=== PATIENT | female | born 1965 | race Caucasian/White ===

== ENCOUNTER → 2016-07-29 | Outpatient (CLI) | payer BC ==
[~2016-07-29] MED LIST: ALPR0.25 PO; CYAN10004 PO; LEVO125C2 PO; PANT40TA PO; TORS20TA2 PO
[2016-07-29 17:11] LABS: BASO % 0.6 %; BASO ABS # 0.05 K/uL (0-0.2); COMPLETE YES; EOS % 1.6 %; HEMATOCRIT 40.8 % (37-47); IG% 0.1 %; LYMPH % 15.1 %; LYMPH ABS # 1.29 K/uL (1.2-3.4); MEAN CELL VOLUME 86.4 fL (80-100); MEAN CORPUSCULAR HEMOGLOBIN 29.2 pg (25-34); MEAN CORPUSCULAR HGB CONC 33.8 g/dl (32-36); MEAN PLATELET VOLUME 12.1 fL (7.4-10.4); MONO % 7.2 %; NEUT % 75.4 %; PLATELET COUNT 301 K/uL (130-400); RED BLOOD COUNT 4.72 M/uL (4.2-5.4); WHITE BLOOD COUNT 8.53 K/uL (4.8-10.8)
[2016-07-29 17:29] LABS: ALT/SGPT 44 U/L (12-78); BLOOD UREA NITROGEN 15 mg/dl (7-18); BUN/CREATININE RATIO 16.6 (10-20); CALCIUM 9.2 mg/dl (8.5-10.1); CARBON DIOXIDE 20 mmol/L (21-32); CHLORIDE 108 mmol/L (98-107); CREATININE 0.91 mg/dl (0.60-1.20); GLUCOSE 84 mg/dl (70-99); POTASSIUM 4.1 mmol/L (3.5-5.1); SODIUM 140 mmol/L (136-145)
[2016-07-29 17:38] LABS: ALKALINE PHOSPHATASE 95 U/L (45-117); AST/SGOT 25 U/L (15-37); FERRITIN 15.7 ng/ml (8.0-388.0); THYROID STIMULATING HORMONE 0.555 uIu/ml (0.300-4.500); TOTAL IRON BINDING CAPACITY 322 mcg/dl (250-450)
== END | disposition home or self-care (01) ==
LOC: C.LABBC 12:57
PROVIDERS: ATTEND Internal Medicine
DX: Z87.19 Personal history of other diseases of the digestive system (principal)

== ENCOUNTER → 2016-10-15 | Outpatient (CLI) | payer BC ==
[2016-10-15 17:45] LABS: THYROID STIMULATING HORMONE 0.204 uIu/ml (0.300-4.500)
--- NOTE | 2016-10-21 13:37 | CODING QUERY MEDICAL NECESSITY ---
SUPPORTING DIAGNOSIS NEEDED A supporting diagnosis is required for the test/procedure performed on this patient in order for us to be reimbursed by the patient's insurance. Please provide a supporting diagnosis for the following test/procedure listed below next to the test name along with your signature. *If there is no additional diagnosis for this patient that would support the following test/procedure please document that below next to the test/procedure. Test(s)/Procedure(s) that require a supporting diagnosis: * VITAMIN D 25-HYDROXY DIAGNOSIS: * DOS: 10/15/16 Provider Signature: Date: Thank you Maribel [facility] Information Management Once completed, please kindly fax back to [phone] For questions please call [phone]
== END | disposition home or self-care (01) ==
LOC: C.LABBC 15:13
PROVIDERS: ATTEND Internal Medicine Endocrinology, Diabetes & Metabolism
DX: Z00.00 Encounter for general adult medical examination without abnormal findings (principal); E89.0 Postprocedural hypothyroidism; R53.83 Other fatigue

== ENCOUNTER → 2016-12-22 | Outpatient (CLI) | payer BC | END | disposition home or self-care (01) | LOC: C.PAPS 08:53 | PROVIDERS: ATTEND Obstetrics & Gynecology | DX: Z01.419 Encounter for gynecological examination (general) (routine) without abnormal findings (principal) ==

== ENCOUNTER → 2017-01-07 | Outpatient (CLI) | payer BC ==
--- NOTE | 2017-01-07 13:38 | MAMMOGRAPHY REPORT ---
BILATERAL DIGITAL SCREENING MAMMOGRAM TOMOSYNTHESIS WITH CAD: 01/07/2017 CLINICAL HISTORY: Routine screening. Patient has no complaints. TECHNIQUE: Breast tomosynthesis in addition to standard 2D mammography was performed. Current study was also evaluated with a Computer Aided Detection (CAD) system. COMPARISON: Comparison is made to exams dated: 01/06/2016 mammogram, 01/02/2015 mammogram, 01/01/2014 m ammogram, 12/29/2012 mammogram, 12/28/2011 mammogram, and 12/20/2009 mammogram - [facility] nter. BREAST COMPOSITION: There are scattered areas of fibroglandular density in both breasts. FINDINGS: No suspicious masses, calcifications, or areas of architectural distortion are noted in ei ther breast. There has been no significant interval change compared to prior exams. IMPRESSION: ACR BI-RADS CATEGORY 1: NEGATIVE There is no mammographic evidence of malignancy. A 1 year screening mammogram is recommended. The pa tient will receive written notification of the results. Approximately 10% of breast cancers are not detected with mammography. A negative mammographic report should not delay biopsy if a clinically suggestive mass is present. Liana Richardson M.D. /:01/07/2017 09:15:21 Senior Report Developer: Marybeth Grande, [facility] letter sent: Normal 1/2 BI-RADS Code: ACR BI-RADS Category 1: Negative
== END | disposition home or self-care (01) ==
LOC: C.MAMM 08:26
PROVIDERS: ATTEND Obstetrics & Gynecology
DX: Z12.31 Encounter for screening mammogram for malignant neoplasm of breast (principal)

== ENCOUNTER → 2017-02-16 | Outpatient (CLI) | payer BC ==
[2017-02-16 12:57] LABS: THYROID STIMULATING HORMONE 0.747 uIu/ml (0.300-4.500)
== END | disposition home or self-care (01) ==
LOC: C.LAB1850 11:14
PROVIDERS: ATTEND Internal Medicine Endocrinology, Diabetes & Metabolism
DX: C73 Malignant neoplasm of thyroid gland (principal)

== ENCOUNTER → 2017-03-08 | Outpatient (CLI) | payer BC ==
--- NOTE | 2017-03-08 11:44 | DIAGNOSTIC IMAGING REPORT ---
CAROTID DOPPLER NECK ART CLINICAL HISTORY: 51 years-old Female presenting with PULSATILE TINNITUS. TECHNIQUE: Real-time grayscale and color and spectral Doppler ultrasound imaging of the bilateral carotid arteries was performed. NASCET criteria was used in evaluating this study. COMPARISON: None. FINDINGS: Right: Common carotid: Patent. Peak systolic velocity 74 cm/s. Internal carotid artery: Patent. Peak systolic velocity 74 cm/s. External carotid artery: Patent. Peak systolic velocity 100 cm/s. Systolic ratio: 1.0. Left: Common carotid: Patent. Peak systolic velocity 71 cm/s. Internal carotid artery: Patent. Peak systolic velocity 77 cm/s. External carotid artery: Patent. Peak systolic velocity 90 cm/s. Systolic ratio: 1.1. Bilateral antegrade flow within the vertebral arteries. Reference ranges: Normal ICA peak systolic velocity less than 125 cm/s. Normal ICA peak systolic velocity to common carotid artery velocity ratio is less than 2: less than 2 equates to less than 50% stenosis, 2-4 equates to 50-69% stenosis, greater than 4 equates to greater than or equal to 70% stenosis. Normal ICA end-diastolic velocity less than 40. Blood pressure Brachial: Right: 138/88 mmHg, Left: 138/88 mmHg. IMPRESSION: No hemodynamically significant stenosis seen within the carotid arteries. Electronically signed by: Stiven Pelletier M.D. 03/08/2017 11:43 AM Dictated Date/Time: 03/08/2017 11:42 AM
== END | disposition home or self-care (01) ==
LOC: C.ULTRBC 10:50
PROVIDERS: ATTEND Physician Assistant Medical
DX: H93.A9 Pulsatile tinnitus, unspecified ear (principal)

== ENCOUNTER → 2017-12-01 | Outpatient (CLI) | payer OTHER ==
[2017-12-01 13:22] LABS: BASO % 0.6 %; BASO ABS # 0.04 K/uL (0-0.2); EOS % 2.8 %; EOS ABS # 0.18 K/uL (0-0.5); HEMATOCRIT 39.7 % (37-47); HEMOGLOBIN 13.5 g/dL (12.0-16.0); IG# 0.01 K/uL (0.00-0.02); LYMPH % 26.2 %; MEAN CELL VOLUME 85.2 fL (80-100); MEAN PLATELET VOLUME 11.6 fL (7.4-10.4); MONO % 7.7 %; NEUT % 62.5 %; NEUT ABS # 4.07 K/uL (1.4-6.5); PLATELET COUNT 256 K/uL (130-400); RED CELL DISTRIBUTION WIDTH CV 14.4 % (11.5-14.5); RED CELL DISTRIBUTION WIDTH SD 45.2 fL (36.4-46.3)
[2017-12-01 13:57] LABS: ALBUMIN 3.5 gm/dl (3.4-5.0); ALT/SGPT 31 U/L (12-78); AST/SGOT 22 U/L (15-37); BLOOD UREA NITROGEN 16 mg/dl (7-18); CALCIUM 8.1 mg/dl (8.5-10.1); CARBON DIOXIDE 25 mmol/L (21-32); CREATININE 0.91 mg/dl (0.60-1.20); GLUCOSE 84 mg/dl (70-99); POTASSIUM 3.7 mmol/L (3.5-5.1); SODIUM 138 mmol/L (136-145)
[2017-12-01 14:00] LABS: ALKALINE PHOSPHATASE 87 U/L (45-117); TOTAL PROTEIN 7.2 gm/dl (6.4-8.2); TRANSFERRIN 251 mg/dl (200-360)
== END | disposition home or self-care (01) ==
LOC: C.LABBC 11:06
PROVIDERS: ATTEND Internal Medicine
DX: Z00.00 Encounter for general adult medical examination without abnormal findings (principal); C73 Malignant neoplasm of thyroid gland; E89.0 Postprocedural hypothyroidism; R53.83 Other fatigue; E53.8 Deficiency of other specified B group vitamins

== ENCOUNTER 2021-03-07 15:18 | Inpatient (IN) ==
--- NOTE | 2021-03-07 15:59 | XRay Report ---
SINGLE VIEW CHEST CLINICAL HISTORY: Dyspnea. FINDINGS: An AP, portable, upright chest radiograph is compared to chest x-ray and chest CT dated 12/17. The cardiomediastinal silhouette is unremarkable. There is airspace consolidation at both chuck g bases, left greater than right. Question trace left pleural effusion. No pneumothorax is seen. The skeletal structures are osteopenic. The bony thorax is grossly intact. IMPRESSION: 1. There is bibasilar airspace consolidation, left greater than right. Correlate clinically from the pneumonia/aspiration pneumonitis. Radiographic follow-up to resolution is recommended. 2. Question trace left pleural effusion. ACT 112: Negative or not required by law. Electronically signed by: Jaya Mendez M.D. 03/07/2021 3:58 PM
--- NOTE | 2021-03-07 16:39 | Emergency Department Note ---
History of Present Illness General Chief complaint: Shortness of Breath/Dyspnea Stated complaint: SOB +COVID Time Seen by Provider: 03/07/21 15:59 Source: patient Mode of arrival: ambulatory Limitations: no limitations History of Present Illness Maximum Pain Intensity: 4 This patient is a 55-year-old female who presents to the emergency department for evaluation of shortness of breath. Patient had a positive COVID-19 test 9 days ago. Her symptoms started 10 days ago. She initially had a headache, body aches, chills and cough. Her fevers and body aches have been improving. She is beginning to get her sense of smell back. She has still been having a dry, hacking cough and states that it is painful to take a deep breath in. She states that she was in the shower today and it became difficult for her to breathe. She called 911 and was brought here. She is feeling somewhat better at this time. She did not receive a COVID-19 vaccination. Patient reports a history of thyroid cancer status post thyroidectomy and also reports a history of "autoimmune issues." Home Medications Medication Instructions Recorded Confirmed Type cyanocobalamin (vitamin B-12) 2,000 mcg PO QPM cap 05/17/19 03/07/21 History 1,000 mcg capsule docusate sodium 100 mg capsule 200 mg PO QPM PRN 06/07/19 03/07/21 History (Colace) polyethylene glycol 3350 17 17 g PO DAILY PRN 11/11/20 03/07/21 History gram/dose oral powder (Miralax) lactobacillus combo no.11 15 1 cap PO DAILY 12/25/20 03/07/21 History billion cell sprinkle capsule (Probiotic) escitalopram oxalate 10 mg tablet 10 mg PO HS 01/13/21 03/07/21 History levothyroxine 112 mcg tablet 112 mcg PO QAM #30 tab 02/24/21 03/07/21 Rx Delsym Cough Plus Day-Night 2 tabs PO UD PRN 03/07/21 03/07/21 History escitalopram oxalate 5 mg tablet 5 mg PO HS 03/07/21 03/07/21 History fluticasone propionate 50 2 spray INTRANASAL DAILY PRN 03/07/21 03/07/21 History mcg/actuation nasal spray,suspension guaifenesin 600 mg tablet, 600 mg PO Q12H PRN 03/07/21 03/07/21 History extended release 12 hr (Mucinex) pantoprazole 40 mg tablet,delayed 40 mg PO DAILY 03/07/21 03/07/21 History release Allergies Allergy/AdvReac Type Severity Reaction Status Date / Time fluorescein Allergy Intermediate made eyes Verified 03/07/21 15:44 really blood shot with drops clarithromycin [From Biaxin] Allergy Mild Rash Verified 03/07/21 15:44 levofloxacin Allergy Mild headache Verified 03/07/21 15:44 paroxetine [From Paxil] Allergy Mild "felt Verified 03/07/21 15:44 weird" Sulfa (Sulfonamide Allergy Mild RASH Verified 03/07/21 15:44 Antibiotics) sulfamethoxazole Allergy Mild Rash Verified 03/07/21 15:44 trimethoprim [From Bactrim] Allergy Mild Rash Verified 03/07/21 15:44 doxycycline AdvReac Mild N/V Verified 03/07/21 15:44 Past Med/Surg History Medical History Anxiety Depression with anxiety GERD (gastroesophageal reflux disease) History of thyroid cancer Hx of migraines Hx of radioactive iodine thyroid ablation Hypothyroidism Osteoarthritis TMJ (dislocation of temporomandibular joint) patient is not sure if she has this jaw has never locked Surgical History History of colonoscopy History of endometrial ablation History of esophagogastroduodenoscopy (EGD) History of thyroidectomy Nausea and vomiting after administration of anesthetic agent Family History Father Diabetes Heart disease Mother Hypertension Idiopathic neuropathy Sister FHx: migraine headaches Hypertension Migraine headache Sleep apnea Unknown Atrial fibrillation Hyperlipemia Hypothyroidism Brother Myocardial infarction Uncle Family history of esophageal cancer Family/Other Family hx of colon cancer 2nd cousin Other No family history of adverse response to anesthesia Social History Smoking Status: Never smoker Second Hand Exposure: Yes ( A CHILD); Hx Alcohol Use: Yes Alcohol type: wine Hx Substance Use: No Preferred Language: Kyrgyz Communication Ability: Effective Visual Impairment: No Limitations Hearing Ability: Normal [employer]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 Beliefs That Will Affect Care: None marital status: Current Living Situation: Spouse Current Living Situation Comment: lives with and 1 son current occupational status: retired Feels Safe at Home: Yes Childhood Exposure to Second-Hand Smoke: Yes Dental Care, Regularly: Yes Physical Activity Frequency: 3-4 Times per Week Seatbelt Use: always Sunscreen Use: Yes Assistive Devices: Glasses Review of Systems A total of 10 systems reviewed and were otherwise negative Physical Exam Vital Signs Vital Signs - 24 hr 03/07/21 15:18 03/07/21 15:22 03/07/21 15:30 Temperature 36.7 C Temperature Source Oral Pulse Rate 72 78 Pulse Rate [Exercises] Pulse Rate from SpO2 Sensor 72 Pulse Rhythm Respiratory Rate 25 H 22 Respiratory Rate [Exercises] Respiratory Effort / Characteristics Labored Respiratory Pattern Regular Blood Pressure 116/84 116/84 Blood Pressure Mean 94 94 Blood Pressure Position Sitting Pulse Oximetry 96 90 97 Pulse Oximetry [Exercises] Oxygen Delivery Method Nasal Cannula Room Air Nasal Cannula Oxygen Flow Rate 2 2 Sepsis Recent Fever Within 48 Hours No Sepsis New/Unexplained Change in Mental Status No Sepsis Action Taken by Nursing No Action Required 03/07/21 16:30 03/07/21 16:50 03/07/21 17:12 Temperature Temperature Source Pulse Rate 73 96 H Pulse Rate [Exercises] 115 H Pulse Rate from SpO2 Sensor 73 Pulse Rhythm Regular Respiratory Rate 18 20 Respiratory Rate [Exercises] 26 H Respiratory Effort / Characteristics Respiratory Pattern Blood Pressure 122/71 Blood Pressure Mean 88 Blood Pressure Position Pulse Oximetry 93 96 Pulse Oximetry [Exercises] 84 L Oxygen Delivery Method Room Air Room Air Oxygen Flow Rate Sepsis Recent Fever Within 48 Hours Sepsis New/Unexplained Change in Mental Status Sepsis Action Taken by Nursing 03/07/21 17:20 03/07/21 17:30 03/07/21 18:00 Temperature Temperature Source Pulse Rate 79 74 71 Pulse Rate [Exercises] Pulse Rate from SpO2 Sensor 78 74 70 Pulse Rhythm Respiratory Rate 20 20 20 Respiratory Rate [Exercises] Respiratory Effort / Characteristics Respiratory Pattern Blood Pressure 114/76 117/78 107/74 Blood Pressure Mean 88 91 85 Blood Pressure Position Pulse Oximetry 94 93 90 Pulse Oximetry [Exercises] Oxygen Delivery Method Nasal Cannula Oxygen Flow Rate 2 Sepsis Recent Fever Within 48 Hours Sepsis New/Unexplained Change in Mental Status Sepsis Action Taken by Nursing 03/07/21 20:10 Temperature Temperature Source Pulse Rate Pulse Rate [Exercises] Pulse Rate from SpO2 Sensor 66 Pulse Rhythm Respiratory Rate Respiratory Rate [Exercises] Respiratory Effort / Characteristics Respiratory Pattern Blood Pressure 98/63 L Blood Pressure Mean 74 Blood Pressure Position Pulse Oximetry 92 Pulse Oximetry [Exercises] Oxygen Delivery Method Oxygen Flow Rate Sepsis Recent Fever Within 48 Hours Sepsis New/Unexplained Change in Mental Status Sepsis Action Taken by Nursing VITALS: Vitals are noted on the nurse's note and reviewed by myself. GENERAL: This is a 55-year-old female in no acute distress. SKIN: The skin was without rashes. EARS: External auditory canals clear, tympanic membranes pearly urias without erythema or effusion bilaterally. EYES: Pupils equal round and reactive to light and accommodation. MOUTH: Mucous membranes moist. Tonsils are not enlarged. Pharynx without erythema or exudate. NECK: Supple without nuchal rigidity. No lymphadenopathy. HEART: Regular rate and rhythm without murmurs gallops or rubs. LUNGS: Clear to auscultation bilaterally without wheezes, rales or rhonchi. No retractions or accessory muscle use. NEURO: Patient was alert and oriented to person place and time. Course Administered Medications Discontinued Medications Dexamethasone Sodium Phosphate (DexamethasonePf 10 Mg/Ml Vial) 6 mg IV NOW ONE Stop: 03/07/21 17:15 Last Admin: 03/07/21 17:52 Dose: 6 mg Documented by: [id number] Ioversol (Optiray 320 125ml) 119 ml IV ONCE ONE Stop: 03/07/21 18:14 Last Admin: 03/07/21 18:13 Dose: 1 ml Documented by: [id number] Medical Decision Making Differential Diagnosis Reactive airway disease, pneumonia, pneumothorax, COPD, CHF, infections, cardiac ischemia, pulmonary embolism, musculoskeletal, gastrointestinal, as well as other pathologies. Home Medications Current Medication List: was personally reviewed by me Laboratory Data Attestation: I reviewed the patient's lab results. Result diagrams: 03/07/21 16:01 03/07/21 16:01 Lab Results 03/07/21 03/07/21 03/07/21 Range/Units 16:01 16:01 16:01 WBC 5.79 (4.8-10.8) K/uL RBC 4.49 (4.2-5.4) M/uL Hgb 13.3 (12.0-16.0) g/dL Hct 39.4 (37-47) % MCV 87.8 (80-100) fL MCH 29.6 (25-34) pg MCHC 33.8 (32-36) g/dL RDW Std Deviation 44.2 (36.4-46.3) fL RDW Coeff of Evelin 13.7 (11.5-14.5) % Plt Count 181 (130-400) K/uL MPV 11.6 H (7.4-10.4) fL Immature Gran % (Auto) 0.0 % Neut % (Auto) 81.3 % Lymph % (Auto) 12.3 % Calvert % (Auto) 6.2 % Eos % (Auto) 0.0 % Baso % (Auto) 0.2 % Neut # (Auto) 4.71 (1.4-6.5) K/uL Lymph # (Auto) 0.71 L (1.2-3.4) K/uL Calvert # (Auto) 0.36 (0.11-0.59) K/uL Eos # (Auto) 0.00 (0-0.5) K/uL Baso # (Auto) 0.01 (0-0.2) K/uL Immature Gran # (Auto) 0.00 (0.00-0.02) K/uL D-Dimer 2120 H* (0-500) ug/L FEU Sodium 137 (136-145) mmol/L Potassium 3.5 (3.5-5.1) mmol/L Chloride 107 (98-107) mmol/L Carbon Dioxide 22 (21-32) mmol/L Anion Gap 8.0 (3-11) BUN 9 (7-18) mg/dl Creatinine 0.85 (0.6-1.2) mg/dl Est Cr Clr Drug Dosing 85.3 ml/min Est GFR ( Amer) 90.0 ml/min Est GFR (Non-Af Amer) 77.7 ml/min BUN/Creatinine Ratio 10.1 (10-20) Glucose 90 (70-99) mg/dl Calcium 8.6 (8.5-10.1) mg/dl Total Bilirubin 0.6 (0.2-1) mg/dl AST 32 (15-37) U/L ALT 41 (12-78) U/L Alkaline Phosphatase 99 (45-117) U/L Troponin I < 0.015 (0-0.045) ng/ml Total Protein 7.4 (6.4-8.2) gm/dl Albumin 3.4 (3.4-5.0) gm/dl Globulin 4.0 (2.5-4.0) gm/dl Albumin/Globulin Ratio 0.9 (0.9-2) Urine Color Urine Appearance (Clear) Urine pH (4.5-7.5) Ur Specific York (1.000-1.030) Urine Protein (Negative) Urine Glucose (UA) (Negative) Urine Ketones (Negative) Urine Blood (Negative) Urine Nitrite (Negative) Urine Bilirubin (Negative) Urine Urobilinogen (Negative) Ur Leukocyte Esterase (Negative) 03/07/21 Range/Units 17:03 WBC (4.8-10.8) K/uL RBC (4.2-5.4) M/uL Hgb (12.0-16.0) g/dL Hct (37-47) % MCV (80-100) fL MCH (25-34) pg MCHC (32-36) g/dL RDW Std Deviation (36.4-46.3) fL RDW Coeff of Evelin (11.5-14.5) % Plt Count (130-400) K/uL MPV (7.4-10.4) fL Immature Gran % (Auto) % Neut % (Auto) % Lymph % (Auto) % Calvert % (Auto) % Eos % (Auto) % Baso % (Auto) % Neut # (Auto) (1.4-6.5) K/uL Lymph # (Auto) (1.2-3.4) K/uL Calvert # (Auto) (0.11-0.59) K/uL Eos # (Auto) (0-0.5) K/uL Baso # (Auto) (0-0.2) K/uL Immature Gran # (Auto) (0.00-0.02) K/uL D-Dimer (0-500) ug/L FEU Sodium (136-145) mmol/L Potassium (3.5-5.1) mmol/L Chloride (98-107) mmol/L Carbon Dioxide (21-32) mmol/L Anion Gap (3-11) BUN (7-18) mg/dl Creatinine (0.6-1.2) mg/dl Est Cr Clr Drug Dosing ml/min Est GFR ( Amer) ml/min Est GFR (Non-Af Amer) ml/min BUN/Creatinine Ratio (10-20) Glucose (70-99) mg/dl Calcium (8.5-10.1) mg/dl Total Bilirubin (0.2-1) mg/dl AST (15-37) U/L ALT (12-78) U/L Alkaline Phosphatase (45-117) U/L Troponin I (0-0.045) ng/ml Total Protein (6.4-8.2) gm/dl Albumin (3.4-5.0) gm/dl Globulin (2.5-4.0) gm/dl Albumin/Globulin Ratio (0.9-2) Urine Color Yellow Urine Appearance Clear (Clear) Urine pH 7.5 (4.5-7.5) Ur Specific York 1.014 (1.000-1.030) Urine Protein Negative (Negative) Urine Glucose (UA) Negative (Negative) Urine Ketones 1+ H (Negative) Urine Blood Negative (Negative) Urine Nitrite Negative (Negative) Urine Bilirubin Negative (Negative) Urine Urobilinogen Negative (Negative) Ur Leukocyte Esterase Negative (Negative) Imaging Data Attestation: I personally reviewed and interpreted this imaging study as follows: Radiologist's Impression: Chest X-Ray 03/07/21 15:26 SINGLE VIEW CHEST CLINICAL HISTORY: Dyspnea. FINDINGS: An AP, portable, upright chest radiograph is compared to chest x-ray and chest CT dated 12/29/2020. The cardiomediastinal silhouette is unremarkable. There is airspace consolidation at both lung bases, left greater than right. Question trace left pleural effusion. No pneumothorax is seen. The skeletal structures are osteopenic. The bony thorax is grossly intact. IMPRESSION: 1. There is bibasilar airspace consolidation, left greater than right. Correlate clinically from the pneumonia/aspiration pneumonitis. Radiographic follow-up to resolution is recommended. 2. Question trace left pleural effusion. ACT 112: Negative or not required by law. Electronically signed by: Jaya Mendez M.D. 03/07/2021 3:58 PM Chest CTA 03/07/21 17:32 CT ANGIOGRAM OF THE CHEST CLINICAL HISTORY: Atypical chest pain. Dyspnea. Covid. COMPARISON STUDY: Chest CT dated 12/29/2020. Chest x-ray dated 03/07/2021. TECHNIQUE: Following the IV administration of 119 cc of Optiray 320, CT angiogram of the chest was performed from the upper abdomen to the thoracic inlet utilizing the pulmonary embolus protocol. Images are reviewed in the axial, sagittal, and coronal planes. 3-D MIPS images are created and assessed. IV contrast was administered without complication. A dose lowering technique was utilized adhering to the principles of ALARA. CT DOSE: 529.21 mGycm FINDINGS: Thyroid: Atrophic. Thoracic aorta: The thoracic aorta is normal in caliber and demonstrates standard 3-vessel arch anatomy. No dissection is seen. Pulmonary vasculature: The pulmonary trunk is normal in caliber. There are no filling defects identified in main, lobar, or segmental pulmonary branches to suggest pulmonary embolus. Heart: The heart is top normal in size and without pericardial effusion. Lungs and pleural spaces: There is multifocal groundglass consolidation seen throughout both lungs with a subpleural and lower lobe predominance. No pleural effusion is identified. The trachea and central airways are clear. Mediastinum: There is no mediastinal lymphadenopathy. Dianne: Clear. Axillae: There is no axillary lymphadenopathy. Upper abdomen: Partially visualized upper abdominal viscera is within normal limits. Skeletal structures: The skeletal structures are osteopenic. No lytic or blastic bony lesions are seen. IMPRESSION: 1. There is no evidence of pulmonary embolus in the main, lobar, or segmental pulmonary arteries. 2. Multifocal airspace consolidation is consistent with the reported history of viral pneumonia. Radiographic follow-up to resolution is recommended. 3. Additional findings as above. ACT 112: Negative or not required by law. Electronically signed by: Jaya Mendez M.D. 03/07/2021 6:44 PM ECG Data Attestation: I personally reviewed and interpreted this ECG as follows: Rate (beats per minute): 70 Rhythm: + normal sinus ECG ST segments: + Nonspecific ST abnormalities Comparison ECG Date: no prior available MDM Narrative Continuous laboratory monitor: Order was placed for continuous laboratory monitor. Patient was placed on the laboratory monitor. Patient was noted to be in normal sinus rhythm at an initial rate of 72 bpm. The patient is a 55-year-old female who presents today complaining of worsening shortness of breath. Patient is positive for COVID-19. She had started to feel better but states that her symptoms have worsened over the past day. She became very short of breath while in the shower just prior to arrival. Her labs are unremarkable, with no leukocytosis, anemia or concerning electrolyte abnormalities. Kidney function is within normal limits. D-dimer was found to be elevated. CT of the chest was performed and shows no evidence of PE. Jeana ient was found to have a multifocal pneumonia consistent with COVID-19. Patient was not hypoxic at rest, however did drop down to 84% during an ambulatory trial. Patient was placed on 2 L of oxygen via nasal cannula. She was given 6 mg of Decadron IV. The case was discussed with the [facility] hospitalist service, who agreed to evaluate the patient for further care. Impression & Plan COVID-19 virus infection Discharge Plan Visit Data Chief Complaint: Shortness of Breath/Dyspnea Stated Complaint: SOB +COVID ED Provider: Raz Patton ED Midlevel Provider: Adrienne Holloway Discharge Problem: COVID-19 virus infection Forms Stand Alone Forms: [facility] Prescriptions Prescriptions: No Action levothyroxine 112 mcg tablet 112 mcg PO QAM Qty: 30 RF: 1 Probiotic 15 billion cell capsule, sprinkle 1 cap PO DAILY RF: 0 cyanocobalamin (vitamin B-12) 1,000 mcg capsule 2,000 mcg PO QPM RF: 0 docusate sodium [Colace] 100 mg Capsule 200 mg PO QPM PRN (Reason: Constipation) RF: 0 polyethylene glycol 3350 [Miralax] 17 gram/dose powder 17 g PO DAILY PRN (Reason: Constipation) RF: 0 escitalopram oxalate 10 mg tablet 10 mg PO HS RF: 0 guaifenesin [Mucinex] 600 mg Tablet Extended Release 12hr 600 mg PO Q12H PRN (Reason: Congestion) RF: 0 Delsym Cough Plus Day-Night 2 tabs PO UD PRN (Reason: Cough) RF: 0 pantoprazole 40 mg tablet,delayed release (DR/EC) 40 mg PO DAILY RF: 0 fluticasone propionate 50 mcg/actuation spray,suspension 2 spray intranasal DAILY PRN (Reason: Allergy Symptoms) RF: 0 escitalopram oxalate 5 mg tablet 5 mg PO HS RF: 0 Referrals Referrals: Stiven Ruiz MD [Primary Care Provider] -
[2021-03-07 17:08] LABS: Basophils # (auto) 0.01 K/uL (0-0.2); Basophils % (auto) 0.2 %; Hematocrit (blood only) 39.4 % (37-47); Hemoglobin 13.3 g/dL (12.0-16.0); Lymphocytes # (auto) 0.71 K/uL (1.2-3.4); Lymphocytes % (auto) 12.3 %; Mean Corpuscular Hemoglobin 29.6 pg (25-34); Mean Corpuscular Hgb Conc 33.8 g/dL (32-36); Mean Corpuscular Volume 87.8 fL (80-100); Mean Platelet Volume 11.6 fL (7.4-10.4); Monocytes # (auto) 0.36 K/uL (0.11-0.59); Monocytes % (auto) 6.2 %; Neutrophils # (auto) 4.71 K/uL (1.4-6.5); Neutrophils % (auto) 81.3 %; Platelet Count 181 K/uL (130-400); RDW Coefficient of Variation 13.7 % (11.5-14.5); RDW Standard Deviation 44.2 fL (36.4-46.3); Red Blood Count 4.49 M/uL (4.2-5.4); White Blood Count 5.79 K/uL (4.8-10.8)
[2021-03-07] MEDS ORDERED: dexAMETHasone**PF** 10 MG/ML VIAL IV ONE (17:14)
[2021-03-07 17:30] LABS: Alanine Aminotransferase 41 U/L (12-78); Albumin Level 3.4 gm/dl (3.4-5.0); Aspartate Aminotransferase 32 U/L (15-37); BUN Creatinine Ratio 10.1 (10-20); Blood Urea Nitrogen 9 mg/dl (7-18); Calcium 8.6 mg/dl (8.5-10.1); Carbon Dioxide 22 mmol/L (21-32); Chloride 107 mmol/L (98-107); Creatinine Clr Calc Pharmacy 85.3 ml/min; Est GFR (Non-African American) 77.7 ml/min; Glucose 90 mg/dl (70-99); Potassium 3.5 mmol/L (3.5-5.1); Sodium 137 mmol/L (136-145)
[2021-03-07 17:32] LABS: D Dimer 2120 ug/L FEU (0-500)
[2021-03-07 17:35] LABS: Albumin Globulin Ratio 0.9 (0.9-2); Alkaline Phosphatase 99 U/L (45-117); Bilirubin,Total 0.6 mg/dl (0.2-1); Total Protein 7.4 gm/dl (6.4-8.2); Troponin I < 0.015 ng/ml (0-0.045)
[2021-03-07] MEDS ORDERED: OPTIRAY 320 125ml IV ONE (18:13)
[2021-03-07 18:14] LABS: Appearance Urine Clear (Clear); Bilirubin Urine Negative (Negative); Blood Urine Negative (Negative); Color Urine Yellow; Glucose Urine UA Negative (Negative); Ketones Urine 1+ (Negative); Leukocyte Esterase Urine Negative (Negative); Nitrite Urine Negative (Negative); Protein Urine Negative (Negative); Specific Gravity Urine 1.014 (1.000-1.030); Urobilinogen Urine Negative (Negative); pH Urine 7.5 (4.5-7.5)
--- NOTE | 2021-03-07 18:45 | CT Scan Report ---
CT ANGIOGRAM OF THE CHEST CLINICAL HISTORY: Atypical chest pain. Dyspnea. Covid. COMPARISON STUDY: Chest CT dated 12/29/2020. Chest x-ray dated 03/07/2021. TECHNIQUE: Following the IV administration of 119 cc of Optiray 320, CT angiogram of the chest was pe rformed from the upper abdomen to the thoracic inlet utilizing the pulmonary embolus protocol. Images are reviewed in the axial, sagittal, and coronal planes. 3-D MIPS images are created and assessed. I V contrast was administered without complication. A dose lowering technique was utilized adhering to the principles of ALARA. CT DOSE: 529.21 mGycm FINDINGS: Thyroid: Atrophic. Thoracic aorta: The thoracic aorta is normal in caliber and demonstrates standard 3-vessel arch anato my. No dissection is seen. Pulmonary vasculature: The pulmonary trunk is normal in caliber. There are no filling defects identif ied in main, lobar, or segmental pulmonary branches to suggest pulmonary embolus. Heart: The heart is top normal in size and without pericardial effusion. Lungs and pleural spaces: There is multifocal groundglass consolidation seen throughout both lungs wi th a subpleural and lower lobe predominance. No pleural effusion is identified. The trachea and centr al airways are clear. Mediastinum: There is no mediastinal lymphadenopathy. Dianne: Clear. Axillae: There is no axillary lymphadenopathy. Upper abdomen: Partially visualized upper abdominal viscera is within normal limits. Skeletal structures: The skeletal structures are osteopenic. No lytic or blastic bony lesions are see n. IMPRESSION: 1. There is no evidence of pulmonary embolus in the main, lobar, or segmental pulmonary arteries. 2. Multifocal airspace consolidation is consistent with the reported history of viral pneumonia. Radi ographic follow-up to resolution is recommended. 3. Additional findings as above. ACT 112: Negative or not required by law. Electronically signed by: Jaya Mendez M.D. 03/07/2021 6:44 PM
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
[2021-03-07] MEDS ORDERED: NON-FORMULARY MEDICATION (Escitalopram Oxalate 5 mg tablet) PO SCH (23:26)
[2021-03-07] MEDS ORDERED: ALBUT/IPRATROP 3MG/0.5MG NEB 3 ML VIAL NEB PRN (23:26)
[2021-03-07] MEDS ORDERED: NITROGLYCERIN SL 0.4 MG/TAB TAB SL PRN (23:26)
[2021-03-07] MEDS ORDERED: ONDANSETRON INJ 2 MG/ML 2 ML VIAL IV PRN (23:26)
[2021-03-07] MEDS ORDERED: POLYETHYLENE (MIRALAX) 17 GM PACK PO PRN (23:26)
[2021-03-07] MEDS ORDERED: ACETAMINOPHEN 325 MG TAB PO PRN (23:26)
[2021-03-07] MEDS ORDERED: DOCUSATE SODIUM 100 MG CAP PO PRN (23:26)
[2021-03-07] MEDS ORDERED: ALBUTEROL HFA 8 GM INHALER INH PRN (23:35)
[2021-03-07] MEDS ORDERED: ESCITALOPRAM OXALATE 10 MG TAB PO SCH (23:45)
[2021-03-07] MEDS: ALBUTEROL HFA 8 GM INHALER INH SCH (23:46)
[2021-03-08] MEDS ORDERED: cefTRIAXone SODIUM 2,000 MG in DEXTROSE 5% 50 ML IV SCH
[2021-03-08] MEDS: guaiFENesin 600 MG TABCR PO SCH ×3 (00:09→21:34)
[2021-03-08] MEDS: ESCITALOPRAM OXALATE 10 MG TAB PO SCH ×2 (00:09→21:35)
[2021-03-08] MEDS: HYDROcodone/HOMATROPINE SYRUP 5MG/1.5MG 5ML UDP PO PRN ×4 (00:20→21:34)
[2021-03-08] MEDS: ENOXAPARIN INJ 40 MG/0.4 ML SYR SQ SCH ×3 (00:56→21:33)
[2021-03-08] MEDS ORDERED: SODIUM CHLORIDE 0.9% 1000ML 1,000 ML IV SCH (04:30)
[2021-03-08] MEDS: LEVOTHYROXINE SODIUM 112 MCG TABLET PO SCH (06:48)
[2021-03-08] MEDS: ALBUTEROL HFA 8 GM INHALER INH SCH (07:16)
[2021-03-08] MEDS: CHOLECALCIFEROL 1,000 UNITS 25 MCG TAB PO SCH (07:31)
[2021-03-08] MEDS: PANTOprazole 40 MG TAB PO SCH (07:31)
[2021-03-08] MEDS: ZINC SULFATE 220 MG CAPSULE PO SCH (07:32)
[2021-03-08] MEDS: ADVANCED PROBIOTIC 1250 MG CAPSULE PO SCH (07:35)
--- NOTE | 2021-03-08 08:54 | Hospitalist Progress Note ---
Date of Service March 08, 2021 Assessment & Plan (1) Pneumonia due to COVID-19 virus: Plan: Pneumonia due to COVID-19 virus with hypoxia- CTA chest with NO pulmonary emboli, just shows infiltrates consistent with viral pneumonia Dexamethasone 6 mg IV daily, day 2, will change to PO on discharge stop scheduled albuterol, no wheezing, make PRN Guaifenesin extended release 600 mg p.o. twice daily Hycodan syrup PRN for cough, could try Codeine if this doesn't help, she says it makes her drowsy stop Ceftriaxone, no concerns for bacterial infection Vitamin D 5000 international units p.o. daily Zinc sulfate 2020 mg p.o. daily Enoxaparin 40 mg subcu every 12 hours on room air this morning, if she remains on room air for 24 hours then discharge her to home on dexamethasone PO fluids stopped, encourage her to eat/drink, sit OOB in chair, ambulate in room (2) Hypoxia: Plan: resolved quickly, was on 2L, down to room air today (3) Depression with anxiety: Plan: Continue Escitalopram (4) Hypothyroidism, postablative: Plan: Post ablative hypothyroidism/history of thyroid cancer- Continue levothyroxine 112 mcg daily (5) History of thyroid cancer: Plan: See above (6) Vitamin B12 deficiency: Plan: Continue supplement 2000 mcg daily (7) GERD (gastroesophageal reflux disease): Plan: Continue pantoprazole Plan: discharge to home tomorrow morning as long as she remains stable Admission and Anticipated Discharge Date Admission Date: March 07, 2021 Subjective patient very fatigued, but breathing easy, has a non productive cough, irritating more than anything no fever, her sense of smell/taste is back, ate some breakfast this morning had diarrhea at home but no diarrhea now for 24 hours, hopeful it is resolved she says she has been sick for about 9-10 days no room air this morning, 90%, discussed that if she stays on room air until tomorrow morning I will discharge her home she agrees with this plan Review of Systems Review of Systems: All systems reviewed & are unremarkable except as noted in Subjective Constitutional: + fatigue and + weakness; no fever Respiratory: + cough and + dyspnea on exertion; no dyspnea and no sputum production Cardiovascular: no chest pain and no edema Gastrointestinal: no abdominal pain, no nausea, no vomiting, no constipation and no diarrhea/loose stools Physical Exam Constitutional: well developed, well nourished, + ill appearing and comfortable; no acute distress Neck: trachea midline, no thyromegaly Respiratory: normal respiratory effort, lungs clear to auscultation Cardiovascular: RRR, no murmur, no edema Gastrointestinal (Abdomen): normal bowel sounds, soft, nontender, no hepatosplenomegaly Musculoskeletal: no cyanosis or clubbing, extremities motor strength 5/5 Skin: no rashes, warm and dry Psychiatric: Orientation: alert and oriented x 3 Affect: + flat affect Mood: + depressed mood Results & Data Results & Data ([facility]) Vital Signs (Past 12 Hours) Vital Signs Temp Pulse Pulse Resp BP BP BP 03/08/21 08:41 60 03/08/21 07:47 36.8 C 65 18 98/67 L 03/08/21 07:17 67 20 03/08/21 05:17 110/70 03/08/21 04:16 37.0 C 64 18 83/48 L 03/08/21 01:15 70 03/07/21 23:26 03/07/21 22:01 37.1 C 69 22 129/86 03/07/21 21:30 99/72 L 03/07/21 21:00 106/60 Pulse Ox Pulse Ox 03/08/21 08:41 03/08/21 07:47 91 03/08/21 07:17 90 03/08/21 05:17 03/08/21 04:16 90 03/08/21 01:15 03/07/21 23:26 92 03/07/21 22:01 92 03/07/21 21:30 92 03/07/21 21:00 91 Laboratory Results Laboratory Results - last 24 hr 03/07/21 03/07/21 03/07/21 16:01 16:01 16:01 WBC 5.79 RBC 4.49 Hgb 13.3 Hct 39.4 MCV 87.8 MCH 29.6 MCHC 33.8 RDW Std Deviation 44.2 RDW Coeff of Evelin 13.7 Plt Count 181 MPV 11.6 H Immature Gran % (Auto) 0.0 Neut % (Auto) 81.3 Lymph % (Auto) 12.3 [place] % (Auto) 6.2 Eos % (Auto) 0.0 Baso % (Auto) 0.2 Neut # (Auto) 4.71 Lymph # (Auto) 0.71 L [place] # (Auto) 0.36 Eos # (Auto) 0.00 Baso # (Auto) 0.01 Immature Gran # (Auto) 0.00 D-Dimer 2120 H* Sodium 137 Potassium 3.5 Chloride 107 Carbon Dioxide 22 Anion Gap 8.0 BUN 9 Creatinine 0.85 Est Cr Clr Drug Dosing 85.3 Est GFR ( Amer) 90.0 Est GFR (Non-Af Amer) 77.7 BUN/Creatinine Ratio 10.1 Glucose 90 Calcium 8.6 Total Bilirubin 0.6 AST 32 ALT 41 Alkaline Phosphatase 99 Troponin I < 0.015 Total Protein 7.4 Albumin 3.4 Globulin 4.0 Albumin/Globulin Ratio 0.9 Urine Color Urine Appearance Urine pH Ur Specific [place] Urine Protein Urine Glucose (UA) Urine Ketones Urine Blood Urine Nitrite Urine Bilirubin Urine Urobilinogen Ur Leukocyte Esterase 03/07/21 17:03 WBC RBC Hgb Hct MCV MCH MCHC RDW Std Deviation RDW Coeff of Evelin Plt Count MPV Immature Gran % (Auto) Neut % (Auto) Lymph % (Auto) [place] % (Auto) Eos % (Auto) Baso % (Auto) Neut # (Auto) Lymph # (Auto) [place] # (Auto) Eos # (Auto) Baso # (Auto) Immature Gran # (Auto) D-Dimer Sodium Potassium Chloride Carbon Dioxide Anion Gap BUN Creatinine Est Cr Clr Drug Dosing Est GFR ( Amer) Est GFR (Non-Af Amer) BUN/Creatinine Ratio Glucose Calcium Total Bilirubin AST ALT Alkaline Phosphatase Troponin I Total Protein Albumin Globulin Albumin/Globulin Ratio Urine Color Yellow Urine Appearance Clear Urine pH 7.5 Ur Specific [place] 1.014 Urine Protein Negative Urine Glucose (UA) Negative Urine Ketones 1+ H Urine Blood Negative Urine Nitrite Negative Urine Bilirubin Negative Urine Urobilinogen Negative Ur Leukocyte Esterase Negative Medications Administered Current Inpatient Medications Acetaminophen (Acetaminophen 325 Mg Tab) 650 mg PO Q4H PRN PRN Reason: Pain or Fever Stop: 04/06/21 23:25 Albuterol (Albut/Ipratrop 3mg/0.5mg Neb 3 Ml Vial) 3 ml NEB Q2H PRN PRN Reason: dyspnea Stop: 04/06/21 23:25 Albuterol (Albuterol Hfa 8 Gm Inhaler) 2 puffs INH QID JOHAN Stop: 04/06/21 23:44 Last Admin: 03/08/21 07:16 Dose: 2 puffs Documented by: Albuterol (Albuterol Hfa 8 Gm Inhaler) 2 puffs INH Q2R PRN PRN Reason: Shortness Of Breath Stop: 04/06/21 23:34 Cyanocobalamin (Cyanocobalamin 500 Mcg Tablet (Vitamin B-12)) 2,000 mcg PO QPM JOHAN Stop: 04/07/21 20:59 Docusate Sodium (Docusate Sodium 100 Mg Cap) 200 mg PO QPM PRN PRN Reason: Constipation Stop: 04/06/21 23:25 Enoxaparin Sodium (Enoxaparin Inj 40 Mg/0.4 Ml Syr) 40 mg SQ Q12H JOHAN Stop: 04/06/21 21:59 Last Admin: 03/08/21 00:56 Dose: 40 mg Documented by: Escitalopram Oxalate (Escitalopram Oxalate 10 Mg Tab) 15 mg PO HS [facility] Stop: 04/06/21 23:44 Last Admin: 03/08/21 00:09 Dose: Not Given Documented by: Guaifenesin (Guaifenesin 600 Mg Tabcr) 600 mg PO Q12 JOHAN Stop: 04/06/21 23:44 Last Admin: 03/08/21 07:32 Dose: 600 mg Documented by: Hydrocodone Bit/Homatropine Methylb (Hydrocodone/Homatropine Syrup 5mg/1.5mg 5ml Udp) 5 ml PO Q4H PRN PRN Reason: Cough Stop: 03/21/21 23:25 Last Admin: 03/08/21 06:51 Dose: 5 ml Documented by: Dexamethasone 6 mg/ Syringe 1.5 mls @ 1 mls/min IV Q24H [facility] Stop: 04/07/21 16:59 Ceftriaxone Sodium 2,000 mg/ (Dextrose) 70 mls @ 100 mls/hr IV Q24H [facility]; Protocol Stop: 03/15/21 00:00 Last Infusion: 03/08/21 01:41 Dose: Infused Documented by: Lactobacillus Acidoph/Casei/Rhamnos (Advanced Probiotic 1250 Mg Capsule) 2 cap PO DAILY JOHAN Stop: 04/07/21 08:59 Last Admin: 03/08/21 07:35 Dose: 2 cap Documented by: Levothyroxine Sodium (Levothyroxine Sodium 112 Mcg Tablet) 112 mcg PO DAILYBB [facility] Stop: 04/07/21 06:29 Last Admin: 03/08/21 06:48 Dose: 112 mcg Documented by: Nitroglycerin (Nitroglycerin Sl 0.4 Mg/Tab Tab) 0.4 mg SL UD PRN PRN Reason: Chest Pain Stop: 04/06/21 23:25 Ondansetron HCl (Ondansetron Inj 2 Mg/Ml 2 Ml Vial) 4 mg IV Q6H PRN PRN Reason: Nausea Stop: 04/06/21 23:25 Pantoprazole Sodium (Pantoprazole 40 Mg Tab) 40 mg PO DAILY [facility] Stop: 04/07/21 08:59 Last Admin: 03/08/21 07:31 Dose: 40 mg Documented by: Polyethylene Glycol (Polyethylene (Miralax) 17 Gm Pack) 17 gm PO DAILY PRN PRN Reason: Constipation Stop: 04/06/21 23:25 Vitamin D (Cholecalciferol 1,000 Units 25 Mcg Tab) 5,000 units PO QAM [facility] Stop: 04/07/21 08:59 Last Admin: 03/08/21 07:31 Dose: 5,000 units Documented by: Zinc Sulfate (Zinc Sulfate 220 Mg Capsule) 220 mg PO QAM [facility] Stop: 04/07/21 08:59 Last Admin: 03/08/21 07:32 Dose: 220 mg Documented by: PG Care Time/CCT Total # of Minutes Spent Total Time Spent with Patient: Total time spent is greater than 50% in coordination of care (as documented) at patient's floor/unit and/or counseling patient: Coding Level of Care Code 41977 Subseq Hosp Care Lvl 2 Diagnoses Pneumonia due to COVID-19 virus U07.1; J12.82 Hypoxia R09.02 Depression with anxiety F41.8 Hypothyroidism, postablative E89.0 History of thyroid cancer Z85.850 Vitamin B12 deficiency E53.8 GERD (gastroesophageal reflux disease) K21.9
[2021-03-08] MEDS ORDERED: dexAMETHasone 6 MG in SYRINGE 0 ML IV SCH (17:00)
[2021-03-08] MEDS ORDERED: CYANOCOBALAMIN 500 MCG TABLET (VITAMIN B-12) PO SCH (21:00)
[2021-03-09] MEDS: LEVOTHYROXINE SODIUM 112 MCG TABLET PO SCH (06:23)
[2021-03-09] MEDS: HYDROcodone/HOMATROPINE SYRUP 5MG/1.5MG 5ML UDP PO PRN (06:26)
[2021-03-09 07:12] LABS: BUN Creatinine Ratio 8.2 (10-20); C Reactive Protein 2.53 mg/dl (0-0.29); Calcium 8.2 mg/dl (8.5-10.1); Creatinine Clr Calc Pharmacy 93.9 ml/min; Est GFR (Non-African American) 94.9 ml/min; Magnesium 2.2 mg/dl (1.8-2.4); Potassium 3.7 mmol/L (3.5-5.1)
[2021-03-09] MEDS: PANTOprazole 40 MG TAB PO SCH (09:21)
[2021-03-09] MEDS: ADVANCED PROBIOTIC 1250 MG CAPSULE PO SCH (09:21)
[2021-03-09] MEDS: CHOLECALCIFEROL 1,000 UNITS 25 MCG TAB PO SCH (09:21)
[2021-03-09] MEDS: guaiFENesin 600 MG TABCR PO SCH (09:21)
[2021-03-09] MEDS: ZINC SULFATE 220 MG CAPSULE PO SCH (09:21)
[2021-03-09] MEDS: ENOXAPARIN INJ 40 MG/0.4 ML SYR SQ SCH (09:22)
--- NOTE | 2021-03-09 10:17 | Discharge Summary ---
Date of Service March 09, 2021 Admission HPI Per Admitting Provider The patient is a 55-year-old female with a past medical history including pulsatile tinnitus of right ear, thyroid cancer, depression with anxiety, post ablative hypothyroidism, PVCs, vitamin B12 deficiency, mixed migraine and muscle contraction headache, atypical chest pain, GERD and TMJ. She presents to the emergency department today for assessment of an acute worsening today of her 9 days interval shortness of breath that began after exposure to her son 10 days ago, who has been diagnosed with COVID-19. Additional symptoms include loss of taste and smell, both of which have been improving. She was seen in her outpatient PCPs office on 03/04, and did have a positive COVID-19 test. Work-up in the emergency department included recorded pulse ox on room air with short ambulation of 84%. Chest x-ray showed bibasilar infiltrates. CT angiography was consistent with a viral pneumonia. Patient was given Decadron 6 mg IV by the ED. Other significant lab abnormalities: D-dimer 2120. CTA of chest was negative for PE Principal Diagnosis COVID 19 pneumonia Discharge Exam Constitutional well developed, well nourished and comfortable; no acute distress and not ill appearing Neck trachea midline, no thyromegaly Respiratory normal respiratory effort, lungs clear to auscultation Cardiovascular RRR, no murmur, no edema Gastrointestinal (Abdomen) normal bowel sounds, soft, nontender, no hepatosplenomegaly Musculoskeletal no cyanosis or clubbing, extremities motor strength 5/5 Skin no rashes, warm and dry Psychiatric Orientation: alert and oriented x 3 Affect: euthymic affect Discharge Data Allergies Allergy/AdvReac Type Severity Reaction Status Date / Time fluorescein Allergy Intermediate made eyes Verified 03/07/21 15:44 really blood shot with drops clarithromycin [From Biaxin] Allergy Mild Rash Verified 03/07/21 15:44 levofloxacin Allergy Mild headache Verified 03/07/21 15:44 paroxetine [From Paxil] Allergy Mild "felt Verified 03/07/21 15:44 weird" Sulfa (Sulfonamide Allergy Mild RASH Verified 03/07/21 15:44 Antibiotics) sulfamethoxazole Allergy Mild Rash Verified 03/07/21 15:44 trimethoprim [From Bactrim] Allergy Mild Rash Verified 03/07/21 15:44 doxycycline AdvReac Mild N/V Verified 03/07/21 15:44 Consultations 03/07/21 20:04 ED Decision to Admit Stat Ordered Studies 03/07/21 17:32 CT angio chest PE protocol Stat Hospital Course (1) Pneumonia due to COVID-19 virus: Pneumonia due to COVID-19 virus with hypoxia- CTA chest with NO pulmonary emboli, just shows infiltrates consistent with viral pneumonia Dexamethasone 6 mg IV daily, day 3, will change to PO on discharge, complete 7 more days at home stop scheduled albuterol, no wheezing, make PRN Enoxaparin 40 mg subcu every 12 hours on room air for over 24 hours, no distress at all, most pressing issue is cough discharge to home on dexamethasone gave prescription for both Hycodan and Codeine, using Hycodan while here, if she is not getting enough relief she can use Codeine instead, instructed her to not take them together, one or the other Tessalon TID Vitamin D and Zinc for 7 days for immune support stay well nourished, well hydrated stay in isolation 3 more days since symptoms started about 10 days ago monitor pulse oximetry at home, return to the ED if saturations < 88% on room air (2) Hypoxia: resolved quickly, was on 2L, down to room air morning of 03/08, stable on room air for over 24 hours, can go home (3) Depression with anxiety: Continue Escitalopram (4) Hypothyroidism, postablative: Post ablative hypothyroidism/history of thyroid cancer- Continue levothyroxine 112 mcg daily (5) History of thyroid cancer: See above (6) Vitamin B12 deficiency: Continue supplement 2000 mcg daily (7) GERD (gastroesophageal reflux disease): Continue pantoprazole discharge to home Total Time Total Time Spent Total Time Spent (In Minutes): 32 Total Time Includes: Examination of the Patient, Discharge Planning and Medication Reconciliation Discharge Plan Discharge Items Patient Disposition: Home - Self-Care Reason For Visit: COVID-19 PNEUMONIA WITH HYPOXIA Discharge Diagnosis: COVID 19 pneumonia Condition on Discharge: Good Goals: complete course of dexamethasone use Codeine and tessalon for cough stay well nourished, well hydrated, get rest Activity: Per Instructions section Activity Comment: stay in isolation for 3 more days Driving/Machine Use: No limitations Weightbearing: Full weightbearing Non-emergency contact: Primary Care Provider Call non-emergency contact if: you have any medication questions and your symptoms worsen Follow-up/Referrals: Stiven Ruiz MD [Primary Care Provider] - (one week) Diet: Regular Addtl Attending Provider Instructions: Medications: - DEXAMETHASONE: 6mg PO daily for 7 more days, this is to reduce inflammation, treat COVID - HYDROCODONE and CODEINE: both of these are different types of cough syrup, if the hydrocodone is not giving you relief, then try the Codeine do NOT use them together, the Codeine is stronger, that is why I gave you a prescription for both if no relief with the hydrocodone then just stop it and use the Codeine, the Codeine will make you a little more drowsy but that is all - TESSALON: take three times a day for cough suppression, it is safe to use this with either the Codeine or hydrocodone obtain Zinc and Vitamin D over the counter, Zinc will be 50mg, take 4 tablets daily for 7 days, the Vitamin D3, take 5000 units daily for 7 days these are for immune support COVID 19 pneumonia: off oxygen for over 24 hours you will likely continue to feel better, cough is most difficult issue to treat use Tessalon three times a day and either the Codeine or Hydrocodone, Codeine is usually more effective take dexamethasone for 7 more days, you can come out of isolation after 3 more days at home get plenty of rest, stay well nourished and well hydrated if you start to feel more short of breath check your pulse oximeter (you can get one of these from drug store) if your saturations are below 88% on room air then you should return to the emergency room however, at this point would only expect you to slowly get better Pending Studies at Discharge: No Stand-Alone Forms: My [facility], Smoking Cessation Medications and DC Order Prescriptions: New hydrocodone-homatropine [Hydromet] 5-1.5 mg/5 mL Syrup 5 ml PO Q4H PRN (Reason: cough) 7 Days Qty: 473 RF: 0 benzonatate [Tessalon Perles] 100 mg capsule 100 mg PO TID PRN (Reason: cough) Qty: 30 RF: 1 codeine-guaifenesin 10-100 mg/5 mL liquid 10 ml PO Q6H PRN (Reason: cough) Qty: 237 RF: 0 dexamethasone 4 mg tablet 6 mg PO DAILY 7 Days Qty: 11 RF: 0 cholecalciferol (vitamin D3) 25 mcg (1,000 unit) Capsule 5,000 unit PO QAM 7 Days Qty: 30 RF: 0 zinc sulfate [Orazinc] 50 mg zinc (220 mg) Capsule 220 mg PO QAM 7 Days Qty: 31 RF: 0 Continued levothyroxine 112 mcg tablet 112 mcg PO QAM Qty: 30 RF: 1 Probiotic 15 billion cell capsule, sprinkle 1 cap PO DAILY RF: 0 cyanocobalamin (vitamin B-12) 1,000 mcg capsule 2,000 mcg PO QPM RF: 0 docusate sodium [Colace] 100 mg Capsule 200 mg PO QPM PRN (Reason: Constipation) RF: 0 polyethylene glycol 3350 [Miralax] 17 gram/dose powder 17 g PO DAILY PRN (Reason: Constipation) RF: 0 escitalopram oxalate 10 mg tablet 10 mg PO HS RF: 0 guaifenesin [Mucinex] 600 mg Tablet Extended Release 12hr 600 mg PO Q12H PRN (Reason: Congestion) RF: 0 pantoprazole 40 mg tablet,delayed release (DR/EC) 40 mg PO DAILY RF: 0 fluticasone propionate 50 mcg/actuation spray,suspension 2 spray intranasal DAILY PRN (Reason: Allergy Symptoms) RF: 0 escitalopram oxalate 5 mg tablet 5 mg PO HS RF: 0 Discontinued Delsym Cough Plus Day-Night 2 tabs PO UD PRN (Reason: Cough) RF: 0 Discharge Orders: Discharge Order (Routine); Ordered 03/09/21 Ordered By: Eder Palumbo Admission Data Admit Date/Time: 03/07/21 20:59 Attending Provider: Eder Palumbo Admit Provider: Antelmo Rodriguez Primary Care Provider: Stiven Ruiz Other Providers: Antelmo Rodriguez Coding Level of Care Code D/C DAY MANAGEMENT >30 MINS Diagnoses Pneumonia due to COVID-19 virus U07.1; J12.82 Hypoxia R09.02 Depression with anxiety F41.8 Hypothyroidism, postablative E89.0 History of thyroid cancer Z85.850 Vitamin B12 deficiency E53.8 GERD (gastroesophageal reflux disease) K21.9
--- NOTE | 2021-03-10 10:14 | Electrocardiogram Report ---
Test Reason : Blood Pressure : / mmHG Vent. Rate : 070 BPM Atrial Rate : 070 BPM P-R Int : 156 ms QRS Dur : 090 ms QT Int : 392 ms P-R-T Axes : 030 -30 -01 degrees QTc Int : 423 ms Normal sinus rhythm Left axis deviation T wave abnormality, consider lateral ischemia Abnormal ECG When compared with ECG of 29-DEC-2020 12:54, Nonspecific T wave abnormality now evident in Lateral leads Confirmed by Kee Chambers ([id number]) on 03/10/2021 10:13:55 AM Referred By: REFERRED SELF Confirmed By:Kee Chambers
== END 2021-03-09 10:47 | disposition home or self-care (01) | DRG 177 ==
LOC: ED 15:18 → 2E 20:59 → SUATTDRO 20:59 → 2E 21:34